=== PATIENT | male | born 1950 ===

== ENCOUNTER 2020-07-26 14:04 | Emergency (ER) | payer MEDICARE ==
[2020-07-26] MEDS ORDERED: oxyCODONE /ACETAMINOPHEN 5-325MG TAB PO ONE ×2 (14:24→22:57)
[2020-07-26 14:55] LABS: Basophils % (Auto) 0.4 % (0.0-1.8); Eosinophils # (Auto) 0.1 K/mm3 (0.0-0.4); Eosinophils % (Auto) 1.1 % (0.0-4.3); Hematocrit 27.1 % (35.5-45.6); Hemoglobin 8.9 gm/dl (11.8-15.2); Lymphocytes # (Auto) 0.9 K/mm3 (1.2-5.4); Lymphocytes % (Auto) 14.1 % (13.4-35.0); Mean Corpuscular HGB Conc 33 % (32-34); Mean Corpuscular Volume 109 fl (84-94); Monocytes # (Auto) 0.6 K/mm3 (0.0-0.8); Monocytes % (Auto) 9.1 % (0.0-7.3); Platelet Count 306 K/mm3 (140-440); Red Blood Count 2.49 M/mm3 (3.65-5.03); Red Cell Distribution Width 17.8 % (13.2-15.2)
[2020-07-26 15:08] LABS: Alanine Aminotransferase 9 units/L (7-56); Albumin 2.9 g/dL (3.9-5); BUN/Creatinine Ratio 11; Blood Urea Nitrogen 9 mg/dL (9-20); Calcium 8.5 mg/dL (8.4-10.2); Hemolysis Index 4
--- NOTE | 2020-07-26 16:01 | Vascular Lab Report ---
DUPLEX DOPPLER LOWER EXTREMITY VEINS, BILATERAL INDICATION / CLINICAL INFORMATION: pain and swelling, worse on right. TECHNIQUE: Duplex doppler imaging was performed through the veins of both lower extremities using venous yusuf trip and other maneuvers. COMPARISON: None available. FINDINGS: RIGHT COMMON FEMORAL VEIN: Negative. RIGHT FEMORAL VEIN: Negative. RIGHT POPLITEAL VEIN: Negative. RIGHT CALF VEINS: Negative. LEFT COMMON FEMORAL VEIN: Negative. LEFT FEMORAL VEIN: Negative. LEFT POPLITEAL VEIN: Negative. LEFT CALF VEINS: Negative. ADDITIONAL FINDINGS: None. IMPRESSION: 1. No sonographic evidence for DVT in either lower extremity. Signer Name: Jero Powers MD Signed: 07/26/2020 3:57 PM Workstation Name: [id number]
--- NOTE | 2020-07-26 20:39 | Event Note ---
ED Screening Note Date of service: 07/26/20 Time: 20:38 ED Screening Note: Patient complains of bilateral leg swelling, worse on right with pain x2 days Denies history of DVT/PE or CHF Denies injury This initial assessment/diagnostic orders/clinical plan/treatment(s) is/are subject to change based on patients health status, clinical progression and re- assessment by fellow clinical providers in the ED. Further treatment and workup at subsequent clinical providers discretion. Patient/guardian urged not to elope from the ED as their condition may be serious if not clinically assessed and managed. Initial orders include: Labs Ultrasound
[2020-07-26] MEDS ORDERED: ONDANSETRON 4 MG ODT TAB PO ONE (22:57)
[2020-07-26] MEDS ORDERED: IBUPROFEN 800 MG TAB PO ONE (22:57)
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
--- NOTE | 2020-07-26 23:47 | XRay Report ---
Right hip-4 views INDICATION: Right hip pain history of surgery. COMPARISON: None. IMPRESSION: Intact right hip arthroplasty with trochanteric cerclage device and left femoral neck fi xation. No hardware complication. 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 No acute frac ture identified. Signer Name: Marc Benavidez MD Signed: 07/26/2020 11:43 PM Workstation Name: [id number]
[2020-07-27 01:50] VITALS: BP 119/82
== END 2020-07-27 01:50 | disposition home or self-care (01) ==
LOC: ED 14:04
DX: E87.6 Hypokalemia (principal); G89.18 Other acute postprocedural pain; Z87.81 Personal history of (healed) traumatic fracture; Z98.890 Other specified postprocedural states; Z79.899 Other long term (current) drug therapy
CPT/HCPCS: 36415; 80053; 83880; 85025; 93970; Q0162

== ENCOUNTER 2020-08-14 08:58 | Emergency (ER) | payer MEDICARE ==
[2020-08-14 09:03] VITALS: BP 125/80
[2020-08-14 09:28] LABS: Basophils % (Auto) 1.1 % (0.0-1.8); Eosinophils # (Auto) 0.2 K/mm3 (0.0-0.4); Eosinophils % (Auto) 5.7 % (0.0-4.3); Hematocrit 24.8 % (35.5-45.6); Hemoglobin 8.2 gm/dl (11.8-15.2); Lymphocytes % (Auto) 29.7 % (13.4-35.0); Mean Corpuscular HGB Conc 33 % (32-34); Mean Corpuscular Volume 107 fl (84-94); Monocytes # (Auto) 0.4 K/mm3 (0.0-0.8); Monocytes % (Auto) 12.7 % (0.0-7.3); Platelet Count 346 K/mm3 (140-440); Red Blood Count 2.32 M/mm3 (3.65-5.03); Red Cell Distribution Width 17.9 % (13.2-15.2)
[2020-08-14 09:52] LABS: Albumin 3.2 g/dL (3.9-5); Blood Urea Nitrogen 9 mg/dL (9-20); Calcium 9.1 mg/dL (8.4-10.2); Hemolysis Index 2
[2020-08-14 10:09] LABS: Alanine Aminotransferase < 5 units/L (7-56); BUN/Creatinine Ratio 13
--- NOTE | 2020-08-14 10:56 | Vascular Lab Report ---
DUPLEX DOPPLER LOWER EXTREMITY VEINS, RIGHT INDICATION / CLINICAL INFORMATION: R leg pain and swelling. TECHNIQUE: Duplex doppler imaging was performed through the veins of the right lower extremity using venous comp ression and other maneuvers. COMPARISON: None available. FINDINGS: RIGHT COMMON FEMORAL VEIN: Negative. RIGHT FEMORAL VEIN: Negative. RIGHT POPLITEAL VEIN: Negative. RIGHT CALF VEINS: Negative. ADDITIONAL FINDINGS: None. IMPRESSION: 1. No sonographic evidence for DVT in the right lower extremity. Signer Name: Larry Shirlye MD Signed: 08/14/2020 10:52 AM Workstation Name: [id number]
--- NOTE | 2020-08-14 14:29 | Event Note ---
ED Screening Note Date of service: 08/14/20 Time: 14:23 ED Screening Note: This is a 69-year-old male presents to the ED complaining left lower leg swelling and pain x 2 days gotten worse, cant walk on it Denies any Medical condition This initial assessment/diagnostic orders/clinical plan/treatment(s) is/are subject to change based on patients health status, clinical progression and re- assessment by fellow clinical providers in the ED. Further treatment and workup at subsequent clinical providers discretion. Patient/guardian urged not to elope from the ED as their condition may be serious if not clinically assessed and managed. Initial orders include: Labs ordered, Doppler Ultrasound ordered Main side eval
--- NOTE | 2020-08-14 17:55 | Emergency Department Report ---
ED General Adult HPI - General Chief complaint: Extremity Injury, Lower Stated complaint: RT LEG SWELLING Time Seen by Provider: 08/14/20 16:29 Source: patient Mode of arrival: Ambulatory Limitations: No Limitations - History of Present Illness Initial comments: 39-year-old Ben[place] male with multiple complaining of a 6 to 7-week history of lower extremity swelling of an unknown etiology which he states he noticed more so at sustaining a hip fracture which is now healed. He is ambulatory reports no trauma reports no fever chills or sweats. Reports no known history of any cancers either. The swelling has minimal pain but does improve somewhat when when he elevates but does not resolve. He reports no calf pain no calf cramping no shortness of breath no palpitations Quality: aching, dull Consistency: constant Improves with: none Worsens with: none Associated Symptoms: denies: confusion, chest pain, diaphoresis, headaches, loss of appetite, malaise, shortness of breath, syncope, weakness Treatments Prior to Arrival: none - Related Data Previous Rx's Medication Instructions Recorded Last Taken Type Potassium Chloride [K-Dur] 2 tab PO QDAY 30 Days #60 tablet 07/27/20 Unknown Rx oxyCODONE /ACETAMINOPHEN [Percocet 1 tab PO Q6HR PRN #15 tablet 07/27/20 Unknown Rx 5/325] Allergies Allergy/AdvReac Type Severity Reaction Status Date / Time No Known Allergies Allergy Unverified 07/26/20 14:15 ED Review of Systems ROS: Stated complaint: RT LEG SWELLING Other details as noted in HPI Comment: All other systems reviewed and negative ED Past Medical Hx - Past Medical History Previous Medical History?: Yes Additional medical history: right hip fx - Surgical History Past Surgical History?: Yes Additional Surgical History: right hip fx repair. pelvis fx repair - Social History Smoking Status: Current Every Day Smoker Substance Use Type: None - Medications Home Medications: Home Medications Medication Instructions Recorded Confirmed Last Taken Type Potassium Chloride [K-Dur] 2 tab PO QDAY 30 Days #60 tablet 07/27/20 Unknown Rx oxyCODONE /ACETAMINOPHEN [Percocet 1 tab PO Q6HR PRN #15 tablet 07/27/20 Unknown Rx 5/325] ED Physical Exam - General Limitations: No Limitations General appearance: alert, in no apparent distress - Head Head exam: Present: atraumatic, normocephalic - Eye Eye exam: Present: normal appearance, PERRL, EOMI Pupils: Present: normal accommodation - ENT ENT exam: Present: normal exam, mucous membranes moist - Neck Neck exam: Present: normal inspection - Respiratory Respiratory exam: Present: normal lung sounds bilaterally. Absent: respiratory distress - Cardiovascular Cardiovascular Exam: Present: regular rate, normal rhythm. Absent: systolic murmur, diastolic murmur, rubs, gallop - GI/Abdominal GI/Abdominal exam: Present: soft, normal bowel sounds - Rectal Rectal exam: Present: deferred - Extremities Exam Extremities exam: Present: normal inspection - Back Exam Back exam: Present: normal inspection - Neurological Exam Neurological exam: Present: alert, oriented X3 - Psychiatric Psychiatric exam: Present: normal affect, normal mood - Skin Skin exam: Present: warm, dry, intact, normal color. Absent: rash ED Course Vital Signs 08/14/20 09:02 Temperature 97.8 F Respiratory 17 Rate Blood Pressure 125/80 ED Medical Decision Making - Lab Data Result diagrams: 08/14/20 09:11 08/14/20 09:11 - Radiology Data Radiology results: report reviewed Referring Physician:MAGALI PRATHERPatient Name:JOSHUA MADDOXPatient ID:[id number] of :[id number]:MaleAccession:[id number] Date:[id number] Status:Finalized Findings [address] [address] Vascular Lab Report Signed Patient: JOSHUA MADDOX MR#: [id number] 4 : 1950 Acct:[id number] Age/Sex: 69 / M ADM Date: 08/14/20 Loc: ED Attending Dr: Ordering Physician: MAGALI PRATHER Date of Service: 08/14/20 Procedure(s): VL venous duplex LE RT Accession Number(s): [id number] cc: MAGALI PRATHER DUPLEX DOPPLER LOWER EXTREMITY VEINS, RIGHT INDICATION / CLINICAL INFORMATION: R leg pain and swelling. TECHNIQUE: Duplex doppler imaging was performed through the veins of the right lower extremity using venous compression and other maneuvers. COMPARISON: None available. FINDINGS: RIGHT COMMON FEMORAL VEIN: Negative. RIGHT FEMORAL VEIN: Negative. RIGHT POPLITEAL VEIN: Negative. RIGHT CALF VEINS: Negative. ADDITIONAL FINDINGS: None. IMPRESSION: 1. No sonographic evidence for DVT in the right lower extremity. Signer Name: Larry Shirley MD Signed: 08/14/2020 10:52 AM Workstation Name: [id number] Transcribed By: DWAINE Dictated By: Larry Shirley MD Electronically Authenticated By: Larry Shirley MD Signed Date/Time: 08/14/201051 DD/ 50 TD/TT: - Medical Decision Making Six 9-year-old male with chronic swelling to his right lower extremity of unknown etiology the ultrasound today shows no no DVT no signs of infections examination is relatively benign. Advised patient to follow-up with his primary care doctor for further evaluation of what looks like lymphedema to a previously fractured hip leg. Critical care attestation.: If time is entered above; I have spent that time in minutes in the direct care of this critically ill patient, excluding procedure time. ED Disposition Clinical Impression: Right leg swelling Disposition: DC-01 TO HOME OR SELFCARE Is pt being admited?: No Does the pt Need Aspirin: No Condition: Stable Instructions: Lymphedema, Edema Additional Instructions: Please be sure to follow-up with your primary care for provider at [facility] and your orthopedic doctor for further evaluation of the lower extremity swelling which appears to be more along the lines of lymphedema. Further evaluation is needed to determine the the origin. Ultrasound shows no DVT and lab work shows no signs of infection neuro examination also does not support any infectious process to the leg Referrals: PRIMARY MD WANG [Primary Care Provider] - 3-5 Days
== END 2020-08-14 18:32 | disposition home or self-care (01) ==
LOC: ED 08:58
DX: R22.41 Localized swelling, mass and lump, right lower limb (principal); F17.200 Nicotine dependence, unspecified, uncomplicated; Z79.899 Other long term (current) drug therapy; Z98.890 Other specified postprocedural states
CPT/HCPCS: 36415; 80053; 83880; 85025

== ENCOUNTER 2020-10-11 09:23 | Emergency (ER) | payer MEDICARE ==
[2020-10-11 09:56] VITALS: BP 123/77
--- NOTE | 2020-10-11 10:08 | Event Note ---
ED Screening Note Date of service: 10/11/20 Time: 10:07 ED Screening Note: 70-year-old male who presents with pain to the left shoulder status post fall today complaining of inability to move arm due to shoulder pain. This initial assessment/diagnostic orders/clinical plan/treatment(s) is/are s ubject to change based on patients health status, clinical progression and re- assessment by fellow clinical providers in the ED. Further treatment and workup at subsequent clinical providers discretion. Patient/guardian urged not to elope from the ED as their condition may be serious if not clinically assessed and managed. Initial orders include: X-ray of the shoulder
[2020-10-11] MEDS ORDERED: oxyCODONE /ACETAMINOPHEN 5-325MG TAB PO ONE (10:36)
[2020-10-11] MEDS ORDERED: IBUPROFEN 800 MG TAB PO ONE (10:36)
--- NOTE | 2020-10-11 10:42 | XRay Report ---
XR shoulder 2+V LT INDICATION / CLINICAL INFORMATION: pain/fall. COMPARISON: None available. FINDINGS: Moderately displaced left humeral fracture. Acromioclavicular joint is maintained. Remote healed left rib fractures. Visualized lung appears within normal limits. Impression: 1. Multipart moderately displaced left humeral fracture. Signer Name: Atilio Bello MD Signed: 10/11/2020 10:37 AM Workstation Name: [id number]
--- NOTE | 2020-10-11 11:34 | Emergency Department Report ---
ED Upper Extremity Inj HPI - General Chief Complaint: Shoulder Injury Stated Complaint: LT SHOULDER PAIN Time Seen by Provider: 10/11/20 10:45 Source: patient Mode of arrival: Wheelchair Limitations: Physical Limitation - History of Present Illness Initial Comments: This is a 70-year-old male nontoxic, well nourished in appearance, no acute signs of distress presents to the ED with c/o of left shoulder pain status post mechanical trip and fall this morning.. Patient denies any other trauma. Denies any neck or back pain. Denies any LOC. Denies any head trauma. Patient denies any numbness, tingling, fever, chills, nausea, vomiting, chest pain, shortness of breath, headache, stiff neck. Patient denies any joint swelling or joint redness. Patient stated has decreased range of motion due to pain. Patient denies any allergies. MD Complaint: Injury to:: left, shoulder -: This morning Other Extremity Injury: Shoulder: Left Severity scale (0 -10): 8 Improves With: immobilization Worsens With: movement of extremity Context: fall Associated Symptoms: denies other symptoms. denies: weakness, numbness, neck pain, suspects foreign body, nausea/vomiting, heard/felt popping sensat - Related Data Previous Rx's Medication Instructions Recorded Last Taken Type Potassium Chloride [K-Dur] 2 tab PO QDAY 30 Days #60 tablet 07/27/20 Unknown Rx oxyCODONE /ACETAMINOPHEN [Percocet 1 tab PO Q6HR PRN #15 tablet 07/27/20 Unknown Rx 5/325] Acetaminophen/Codeine [Tylenol 1 tab PO Q8H PRN #12 tab 10/11/20 Unknown Rx /Codeine # 3 tab] Naproxen 500 mg PO Q8H PRN #20 tablet 10/11/20 Unknown Rx Allergies Allergy/AdvReac Type Severity Reaction Status Date / Time No Known Allergies Allergy Unverified 07/26/20 14:15 ED Review of Systems ROS: Stated complaint: LT SHOULDER PAIN Other details as noted in HPI Comment: All other systems reviewed and negative Constitutional: denies: chills, fever Eyes: denies: eye pain, eye discharge, vision change ENT: denies: ear pain, throat pain Respiratory: denies: cough, shortness of breath, wheezing Cardiovascular: denies: chest pain, palpitations Endocrine: no symptoms reported Gastrointestinal: denies: abdominal pain, nausea, diarrhea Genitourinary: denies: urgency, dysuria Musculoskeletal: denies: back pain, joint swelling, arthralgia Skin: denies: rash, lesions Neurological: denies: headache, weakness, paresthesias Psychiatric: denies: anxiety, depression Hematological/Lymphatic: denies: easy bleeding, easy bruising ED Past Medical Hx - Past Medical History Additional medical history: right hip fx - Surgical History Additional Surgical History: right hip fx repair. pelvis fx repair - Social History Smoking Status: Current Every Day Smoker Substance Use Type: Alcohol - Medications Home Medications: Home Medications Medication Instructions Recorded Confirmed Last Taken Type Potassium Chloride [K-Dur] 2 tab PO QDAY 30 Days #60 tablet 07/27/20 Unknown Rx oxyCODONE /ACETAMINOPHEN [Percocet 1 tab PO Q6HR PRN #15 tablet 07/27/20 Unknown Rx 5/325] Acetaminophen/Codeine [Tylenol 1 tab PO Q8H PRN #12 tab 10/11/20 Unknown Rx /Codeine # 3 tab] Naproxen 500 mg PO Q8H PRN #20 tablet 10/11/20 Unknown Rx ED Physical Exam - General Limitations: Physical Limitation General appearance: alert, in no apparent distress - Head Head exam: Present: atraumatic, normocephalic - Eye Eye exam: Present: normal appearance - Neck Neck exam: Present: normal inspection, full ROM. Absent: tenderness, meningismus, lymphadenopathy - Respiratory Respiratory exam: Absent: respiratory distress - Cardiovascular Cardiovascular Exam: Present: regular rate - Extremities Exam Extremities exam: Present: tenderness, normal capillary refill. Absent: full ROM, joint swelling - Expanded Upper Extremity Exam Left Shoulder Exam: Present: tenderness, tenderness over AC joint. Absent: full ROM, swelling, abrasion, laceration, ecchymosis, deformity, crepidus, dislocation, erythema Upper Arm exam: Present: normal inspection, full ROM. Absent: tenderness, swelling Elbow exam: Present: normal inspection, full ROM. Absent: tenderness, swelling Forearm Wrist exam: Present: normal inspection, full ROM. Absent: tenderness, swelling Hand Wrist exam: Present: normal inspection, full ROM. Absent: tenderness, swelling Vascular: Present: normal capillary refill. Absent: vascular compromise (Neurovascular within normal limits) - Back Exam Back exam: Present: normal inspection, full ROM. Absent: tenderness, CVA tenderness (R), CVA tenderness (L), muscle spasm, paraspinal tenderness, vertebral tenderness, rash noted - Neurological Exam Neurological exam: Present: alert, oriented X3, normal gait - Psychiatric Psychiatric exam: Present: normal affect, normal mood - Skin Skin exam: Present: warm, dry, intact, normal color. Absent: rash ED Course Vital Signs 10/11/20 10/11/20 10/11/20 09:51 11:18 11:19 Temperature 97.7 F Pulse Rate 64 Respiratory 18 18 18 Rate Blood Pressure 123/77 O2 Sat by Pulse 70 L Oximetry 10/11/20 10/11/20 11:56 12:09 Temperature Pulse Rate 60 Respiratory 18 18 Rate Blood Pressure O2 Sat by Pulse 99 Oximetry - Reevaluation(s) Reevaluation #1: 10/11/20 11:38 Patient is speaking in full sentences with no signs of distress noted. ED Medical Decision Making - Radiology Data Referring Physician: LINSEY LAURAENO Patient Name: JOSHUA MADDOX Date of : 1950 Sex: Male Report Date: 2020-10-11 Report Status: Finalized [facility] [address] [place] [address] XRay Report Signed Patient: JOSHUA MADDOX MR#: [id number] 4 : 1950 Acct:[id number] Age/Sex: 70 / M ADM Date: 10/11/20 Loc: ED Attending Dr: Ordering Physician: SPENCER COELLO Date of Service: 10/11/20 Procedure(s): XR shoulder 2+V LT Accession Number(s): [id number] cc: SPENCER COELLO Fluoro Time In Minutes: XR shoulder 2+V LT INDICATION / CLINICAL INFORMATION: pain/fall. COMPARISON: None available. FINDINGS: Moderately displaced left humeral fracture. Acromioclavicular joint is maintained. Remote healed left rib fractures. Visualized lung appears within normal limits. Impression: 1. Multipart moderately displaced left humeral fracture. Signer Name: Aitlio Bello MD Signed: 10/11/2020 10:37 AM Workstation Name: [id number] Transcribed By: Dictated By: Atilio Bello MD Electronically Authenticated By: Atilio Bello MD Signed Date/Time: 10/11/20 1037 DD/ 1031 TD/TT: - Medical Decision Making This is a 70-year-old male that presents with left humerus fracture. Patient is stable and was examined by me. I referred patient to an orthopedic doctor for further evaluation for possible MRI. X-ray has been obtained and dictated by the radiologist. Patient is notified of the x-ray report with noted by the patient. Patient received a shoulder immobilizer. Patient was instructed to RICE therapy. Patient received medication for pain in the ED. Patient stated pain is under control prior to discharge and family member will drive the patient home after discharge due to possible drowsiness. Patient is discharged with Tylenol with codeine and naproxen. At time of discharge, the patient does not seem toxic or ill in appearance. No acute signs of distress noted. Patient agrees to discharge treatment plan of care. No further questions noted by the patient. Critical care attestation.: If time is entered above; I have spent that time in minutes in the direct care of this critically ill patient, excluding procedure time. ED Disposition Clinical Impression: Left humeral fracture Qualifiers: Encounter type: initial encounter Humerus Location: proximal Fracture type: closed Fracture morphology: other fracture Fracture alignment: displaced Qualified Code(s): S42.292A - Other displaced fracture of upper end of left humerus, initial encounter for closed fracture Disposition: DC-01 TO HOME OR SELFCARE Is pt being admited?: No Does the pt Need Aspirin: No Condition: Stable Instructions: Humerus Fracture Treated With Immobilization, [id number] Additional Instructions: Follow-up with a orthopedic doctor in 3-5 days or if symptoms worsen and continue return to emergency room as soon as possible. No physical activity that extremity until cleared by orthopedic doctor Do not operate any machinery while taking Tylenol with codeine as this may cause drowsiness. Prescriptions: Naproxen 500 mg PO Q8H PRN #20 tablet PRN Reason: Pain , Severe (7-10) Acetaminophen/Codeine [Tylenol /Codeine # 3 tab] 1 tab PO Q8H PRN #12 tab PRN Reason: Pain , Severe (7-10) Referrals: GERRI PIÑA MD [Primary Care Provider] - 3-5 Days TERRENCE SARMIENTO MD [Staff Physician] - 3-5 Days Time of Disposition: 11:44
== END 2020-10-11 11:45 | disposition home or self-care (01) ==
LOC: ED 09:23
DX: S42.302A Unspecified fracture of shaft of humerus, left arm, initial encounter for closed fracture (principal); F17.200 Nicotine dependence, unspecified, uncomplicated; Z98.890 Other specified postprocedural states; Z79.899 Other long term (current) drug therapy; W01.0XXA Fall on same level from slipping, tripping and stumbling without subsequent striking against object, initial encounter; Y93.89 Activity, other specified; Y92.89 Other specified places as the place of occurrence of the external cause; Y99.8 Other external cause status
CPT/HCPCS: 99283